=== PATIENT | female | born 1970 | race Caucasian/White ===

== ENCOUNTER 2021-11-09 13:09 | Emergency (ER) | payer BC ==
--- OUTSIDE RECORDS SUMMARY | 2021-11-09 13:13 | XMS REPORT | Continuity of Care Document ---
:1970 Author Organization [facility] t Address [facility] [address] [place] [address] Care Team Providers Name Role Phone DR LUIZA Attending Clinician Unavailable DR LUIZA Admitting Clinician Unavailable Problems This patient has no known problems. Allergies, Adverse Reactions, Alerts Allergy Allergy Status Severity Reaction(s) Onset Inactive Treating Comm ents Source Name Type Date Date Clinician Codeine DA Active Unknown GI upset [facility] Hydrocod DA Active Unknown GI upset Vernabe ms one [facility] Center Medications This patient has no known medications. Vital Signs Vital Name Observation Time Observation Value Comments Source Height 2020-08-21 04:10:00 162.56 CM Weight 2020-08-21 04:10:00 93.89 KG Height 2020-08-17 14:53:00 162.56 CM Weight 2020-08-17 14:53:00 90.71 KG Procedures Procedure Date / Time Performed Performing Clinician [facility] e RELEASE LEFT FOOT 2020-08-21 00:00:00 Ta Me dical MUSCLE OPEN Center Encounters Start End Encounter Admission Attending Care Care Encounter Source Date/Time Date/Time Type Type Clinicians Facility Department ID 2020-08-21 2020-08-21 Outpatient DANIEL FAY [facility] [id number] [place] 03:59:00 06:10:00 [facility] Results Test Description Test Time Test Comments Results Result Comments Source URINE MONOCLONALFB 2020-08-21 04:35:00 Test Item Value Reference Range Interpretation Comme nts PREG UR (test code = PGU) NEGATIVE NEGATIVE
[2021-11-09 13:41] LABS: Absolute Lymphocytes (CBC) 0.9 K/uL (0.7-4.9); Hematocrit 41.6 % (36.0-45.0); Lymphocytes % 11.1 % (15.3-44.8); MPV 7.8 fL (7.6-11.3); RBC Red Blood Cell Count 4.29 M/uL (3.86-4.86)
[2021-11-09 13:56] LABS: Albumin 3.8 g/dL (3.4-5.0); Bilirubin Total 0.6 mg/dL (0.2-1.0); Protein, Total 7.5 g/dL (6.4-8.2)
[2021-11-09 14:00] LABS: Urine Blood Trace-lysed (Negative); Urine Glucose Negative (Negative); Urine Protein Negative (Negative); Urine Specific Gravity 1.025 (1.005-1.030)
[2021-11-09 14:26] LABS: Urine Specific Gravity/Preg 1.025 (1.005-1.030)
--- NOTE | 2021-11-09 14:47 | RAD REPORT ---
EXAM DESCRIPTION: CTAbdomen Pelvis W Contrast - 11/09/2021 2:35 pm CLINICAL HISTORY: Abdominal pain. LLQ abdominal pain COMPARISON: No comparisons TECHNIQUE: Biphasic CT imaging of the abdomen and pelvis was performed with 100 ml non-ionic IV cont rast. All CT scans are performed using dose optimization technique as appropriate and may include automated exposure control or mA/KV adjustment according to patient size. FINDINGS: Mildly emphysematous lung bases. Mild diffuse fatty liver is present. The spleen, pancreas, adrenal glands kidneys are within normal l imits. No bowel obstruction, free air, free fluid or abscess. Prominent colonic diverticulosis is present th roughout the colon. 15 mm area of epiploic appendagitis is seen in the left lower quadrant adjacent t o the sigmoid colon. The appendix is normal. No evidence of significant lymphadenopathy. Moderate lumbosacral degenerative changes. IMPRESSION: 15 mm area of epiploic appendagitis in the left lower quadrant. Prominent diverticulosis of the colon.
[2021-11-09 14:49] LABS: Urine Bacteria 20-50 /HPF (<20); Urine RBC <5 /HPF (NONE SEEN)
[2021-11-09 14:50] LABS: Urine Mucus 1+ /HPF (NONE SEEN)
--- NOTE | 2021-11-09 15:35 | EDPHYS ---
Physician Documentation [facility] Name: Talita Cortez Age: 51 yrs Sex: Female : 1970 Arrival Date: 11/09/2021 Time: 13:12 Bed DIS3 Private MD: George Hubbard ED Physician Pablo Will HPI: 11/09 15:34 This 51 yrs old Female presents to ER via Ambulatory with complaints of Abdominal Pain ms3 - left side. 15:34 The patient presents with abdominal pain in the left lower quadrant. Onset: The ms3 symptoms/episode began/occurred 2 day(s) ago. The symptoms do not radiate. Associated signs and symptoms: none. The symptoms are described as achy. Modifying factors: The symptoms are alleviated by nothing, the symptoms are aggravated by nothing. Severity of pain: in the emergency department the pain is a 8 / 10. [employer]: 13:22 LMP N/A - Post-menopause ld1 Historical: - Allergies: 13:22 Bactrim; ld1 - Home Meds: 13:22 aspirin 81 mg Oral chew 1 tab once daily [Active]; pantoprazole 20 mg oral TbEC 1 tab ld1 once daily [Active]; - PMHx: 13:22 Hypertensive disorder; Hypercholesterolemia; ld1 - PSHx: 13:22 None; ld1 - Immunization history:: Adult Immunizations up to date, Client reports receiving the 2nd dose of the Covid vaccine. - Social history:: Smoking status: Patient/guardian denies using tobacco, the patient reports quitting approximately 4 years ago, Patient uses alcohol, occasionally. ROS: 15:34 Constitutional: Negative for fever, and chills. Neck: Negative for injury, pain, and ms3 swelling, Cardiovascular: Negative for chest pain, and palpitations. Respiratory: Negative for shortness of breath, cough, wheezing, and pleuritic chest pain, MS/Extremity: Negative for injury and deformity, Skin: Negative for injury, rash, and discoloration. 15:34 Abdomen/GI: Positive for abdominal pain, diarrhea. Exam: 15:34 Constitutional: This is a well developed, well nourished patient who is awake, alert, ms3 and in no acute distress. Chest/axilla: Normal chest wall appearance and motion. Nontender with no deformity. Cardiovascular: Regular rate and rhythm with a normal S1 and S2. No gallops, murmurs, or rubs. Normal PMI, no JVD. No pulse deficits. Respiratory: Lungs have equal breath sounds bilaterally, clear to auscultation and percussion. No rales, rhonchi or wheezes noted. No increased work of breathing, no retractions or nasal flaring. Psych: Awake, alert, with orientation to person, place and time. Behavior, mood, and affect are within normal limits. 15:34 Abdomen/GI: Inspection: abdomen appears normal, Bowel sounds: normal, Palpation: moderate abdominal tenderness, in the left lower quadrant. Vital Signs: 13:19 BP 149 / 102; Pulse 82; Resp 18; Temp 98.2(TE); Pulse Ox 97% on R/A; Weight 86.18 kg; ld1 Height 5 ft. 4 in. (162.56 cm); Pain 8/10; 13:19 Body Mass Index 32.61 (86.18 kg, 162.56 cm) ld1 MDM: 13:49 Patient medically screened. ms3 15:34 Differential diagnosis: diverticulitis, non-specific abd pain, urinary tract infection. ms3 Data reviewed: vital signs, nurses notes, lab test result(s), radiologic studies, CT scan. Data interpreted: Pulse oximetry: on room air is 97 %. Interpretation: normal. Counseling: I had a detailed discussion with the patient and/or guardian regarding: the historical points, exam findings, and any diagnostic results supporting the discharge/admit diagnosis, lab results, radiology results, the need for outpatient follow up, to return to the emergency department if symptoms worsen or persist or if there are any questions or concerns that arise at home. ED course: Discussed CT, labs, PE findings with patient. Patient to follow up with PMD in 2-3 days. Patient understands/ agrees with plan. All questions answered. Return precautions given to include worsening symptoms, or any other concerns. Patient is improved, in NAD, non-toxic appearing, ambulatory in ED, speaking full sentences.. 11/09 13:25 Order name: CBC with Diff; Complete Time: 15:22 ld1 11/09 13:25 Order name: CMP; Complete Time: 15:22 ld1 11/09 13:25 Order name: Lipase; Complete Time: 15:22 ld1 11/09 13:48 Order name: Urine Microscopic Only; Complete Time: 15:22 ms3 11/09 14:00 Order name: Urine Dipstick-Ancillary; Complete Time: 15:22 EDMS 11/09 14:17 Order name: Urine --Ancillary (enter results); Complete Time: 15:22 kj1 11/09 13:25 Order name: IV Saline Lock; Complete Time: 13:33 1 11/09 13:25 Order name: Labs collected and sent; Complete Time: 13:33 1 11/09 13:25 Order name: Urine Dipstick-Ancillary (obtain specimen); Complete Time: 14:54 1 11/09 13:48 Order name: CT Abd/Pelvis - IV Contrast Only; Complete Time: 15:22 md3 11/09 13:50 Order name: Urine Test (obtain specimen); Complete Time: 14:54 md3 11/09 14:52 Order name: Urine Culture EDMS Administered Medications: No medications were administered Disposition Summary: 11/09/21 15:34 Discharge Ordered Location: Home ms3 Condition: Stable ms3 Diagnosis - Lower abdominal pain, unspecified ms3 - Epiploic apendigitis ms3 - Epiploic appendagitis ms3 Followup: ms3 - With: George Hubbard - When: 2 - 3 days - Reason: Recheck today's complaints Discharge Instructions: - Discharge Summary Sheet ms3 - Abdominal Pain, Adult ms3 - Epiploic Appendagitis ms3 Forms: - Medication Reconciliation Form ms3 - Thank You Letter ms3 - Antibiotic Education ms3 - Prescription Opioid Use ms3 Prescriptions: - Ibuprofen 600 mg Oral Tablet - take 1 tablet by ORAL route every 6 hours As needed take with food; 30 tablet; ms3 Refills: 0, Product Selection Permitted Signatures: Dispatcher [employer] EDMS Pablo Will DO DO ms3 Annie Herrera RN RN ld1 Corrections: (The following items were deleted from the chart) 13:24 13:22 Allergies: No Known Allergies; ld1 ld1
--- NOTE | 2021-11-09 15:35 | ER ---
Nurse's Notes [facility] Name: Talita Cortez Age: 51 yrs Sex: Female : 1970 Arrival Date: 11/09/2021 Time: 13:12 Bed DIS3 Private MD: George Hubbard Diagnosis: Lower abdominal pain, unspecified;Epiploic apendigitis;Epiploic appendagitis Presentation: 11/09 13:19 Chief complaint: Patient states: LLQ pain X 2 days. Diarrhea X 3 weeks. Coronavirus ld1 screen: At this time, the client does not indicate any symptoms associated with coronavirus-19. Ebola Screen: No symptoms or risks identified at this time. Initial Sepsis Screen: Does the patient meet any 2 criteria? No. Patient's initial sepsis screen is negative. Does the patient have a suspected source of infection? No. Patient's initial sepsis screen is negative. Risk Assessment: Do you want to hurt yourself or someone else? Patient reports no desire to harm self or others. Onset of symptoms was November 09, 2021. 13:19 Method Of Arrival: Ambulatory ld1 13:19 Acuity: FRANDY 3 ld1 Triage Assessment: 13:22 General: Appears in no apparent distress. comfortable, Behavior is calm, cooperative, ld1 appropriate for age. Pain: Complains of pain in left lower quadrant Pain does not radiate. Pain currently is 8 out of 10 on a pain scale. EENT: No signs and/or symptoms were reported regarding the EENT system. Neuro: Level of Consciousness is awake, alert, obeys commands, Oriented to person, place, time, situation. Cardiovascular: Capillary refill < 3 seconds Patient's skin is warm and dry. Respiratory: Airway is patent Respiratory effort is even, unlabored. GI: Abdomen is round non-distended, Reports lower abdominal pain. : No signs and/or symptoms were reported regarding the genitourinary system. Derm: No signs and/or symptoms reported regarding the dermatologic system. Musculoskeletal: No signs and/or symptoms reported regarding the musculoskeletal system. 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 - Social history:: Smoking status: Patient/guardian denies using tobacco, the patient reports quitting approximately 4 years ago, Patient uses alcohol, occasionally. Vital Signs: 13:19 BP 149 / 102; Pulse 82; Resp 18; Temp 98.2(TE); Pulse Ox 97% on R/A; Weight 86.18 kg; ld1 Height 5 ft. 4 in. (162.56 cm); Pain 8/10; 13:19 Body Mass Index 32.61 (86.18 kg, 162.56 cm) ld1 ED Course: 13:12 Patient arrived in ED. am2 13:13 George Hubbard is Private Physician. am2 13:22 Triage completed. ld1 13:22 Arm band placed on right wrist. EKG completed in triage. Results shown to MD. ld1 13:28 Pablo Will DO is Attending Physician. ms3 13:33 Inserted saline lock: 20 gauge in right antecubital area, using aseptic technique. ld1 Blood collected. 14:36 CT Abd/Pelvis - IV Contrast Only In Process Unspecified. EDMS 14:55 Urine Culture Sent. mh5 15:33 George Hubbard is Referral Physician. ms3 15:36 Bianca Oconnor RN is Primary Nurse. iw Administered Medications: No medications were administered Outcome: 15:34 Discharge ordered by MD. ms3 15:47 Patient left the ED. iw Signatures: Dispatcher [employer] EDMS Bianca Oconnor, VERONICA RN iw Carito Schneider 5 America Morgan am2 Pablo Will DO DO ms3 Annie Herrera RN RN ld1 Corrections: (The following items were deleted from the chart) 13:24 13:22 Allergies: No Known Allergies; ld1 ld1
[2021-11-09 16:13] VITALS: BP 149/102; TEMP 98.2; O2SAT 97
== END 2021-11-09 15:47 | disposition home or self-care (01) ==
LOC: ER 13:09
DX: K63.89 Other specified diseases of intestine (principal); I10 Essential (primary) hypertension; E78.00 Pure hypercholesterolemia, unspecified; Z79.82 Long term (current) use of aspirin; Z88.1 Allergy status to other antibiotic agents
CPT/HCPCS: 87088; 85025; 87086; 36415; 81025; 83690; 80053; 74177; Q9967; 81003; 81015; 99283